=== PATIENT | male | born 1940 | race Caucasian/White ===

== ENCOUNTER 2016-08-10 05:33 | Inpatient (IN) | payer OTHER ==
[2016-07-26 12:43] LABS: HEMATOCRIT 35.3 % (42.0-52.0); HEMOGLOBIN 11.8 gm/dL (14.0-18.0); MCH 29.8 pg (26.0-34.0); MCHC 33.4 g/dL (28.0-37.0); MCV 89.2 fL (80.0-100.0); RBC 3.96 mil/uL (4.50-6.00); RDW 16.7 % (10.5-14.5)
[2016-07-26 12:51] LABS: ALBUMIN 3.8 g/dL (3.4-5.0); CALCIUM 8.8 mg/dL (8.5-10.1); CREATININE 0.9 mg/dL (0.7-1.3); POTASSIUM 4.3 mmol/L (3.5-5.1)
[2016-07-26 12:54] LABS: INR 1.1; PROTIME 11.2 Seconds (9.3-11.4)
[2016-07-26 13:08] LABS: URINE BILIRUBIN NEGATIVE (Negative); URINE BLOOD NEGATIVE (Negative); URINE COLOR YELLOW; URINE GLUCOSE-RANDOM* NEGATIVE (Negative); URINE KETONES NEGATIVE (Negative); URINE LEUKOCYTES-REFLEX NEGATIVE (Negative); URINE PROTEIN (DIPSTICK) NEGATIVE (Negative); URINE SPECIFIC GRAVITY 1.025 (1.003-1.035); URINE UROBILINOGEN 0.2 E.U./dl (0.2-1.0)
[2016-08-10] VITALS (9 sets, daily range): BP systolic 114–150; BP diastolic 49–84
[~2016-08-10] VITALS: Ht 172.7 cm; Wt 68.6 kg
--- NOTE | ~2016-08-10 | O ---
[facility] [place] [address] OPERATIVE REPORT Name: CEHN KEE Room #: 541-P DIS IN M.R.#: [id number] Admission: 08/10/16 Attend Phys: Abilio Dumont MD Discharge: 08/15/16 Date of : 36 Report #: [id number] THIS REPORT FOR: //name// CC: Mukesh Dumont PREOPERATIVE DIAGNOSIS: Right knee degenerative joint disease, severe. POSTOPERATIVE DIAGNOSIS: Right knee degenerative joint disease, severe. PROCEDURE: Right total knee arthroplasty. SURGEON: Abilio Dumont MD STRAIGHT PIN MAKING MACHINE OPERATOR: Alec Viveros, nurse practitioner. INDICATIONS FOR STRAIGHT PIN MAKING MACHINE OPERATOR: During the course of operation, extensive manipulation, retraction and limb positioning was required. This was afforded to me by my pastry assistant. ANESTHESIA: General. INDICATIONS: See hospital H and P revisions of 08/10/2016. IMPLANTS UTILIZED: DePuy PFC system, cruciate retaining femoral component size 5, size 4 tibial tray, 6 bearing 8 mm insert and a 41 mm oval dome patella. DESCRIPTION OF PROCEDURE: After adequate general anesthesia had been obtained, the patient's right lower extremity was prepped and draped in the usual meticulous sterile fashion. Limb was examined with gravity and tourniquet inflated to 300 torr. An anterior midline incision was made, subQ divided sharply. Hemostasis obtained with electrocautery. Medial parapatellar incision was made. Infrapatellar fat pad excised. Medial release performed along the joint line only due to the patient's valgus deformity. The drill was used to drill the distal femur. This hole was enlarged, irrigated, suctioned, and the intramedullary guide placed the full length of the femur. Distal femoral cutting guide pinned to appropriate height, distal femoral cut was made. We then measured the device to 5, it gave us the best reapproximation of the patient's size. We marked the distal femur, impacted the cutting guide into place and the anterior, posterior and chamfer cuts were made. The rongeur was used to remove additional osteophytes. At this time, the ACL was transected, tibia translated anteriorly, menisci were excised. Drill was used to drill central portion of the tibia. This hole was enlarged, irrigated, suctioned, and the intramedullary guide placed the full length of the tibia. Proximal tibial cutting guide placed at appropriate [facility] [address] [place] [address] OPERATIVE REPORT Name: CHEMA KEEMERY ZHU Room #: 541-P DIS IN M.R.#: [id number] Admission: 08/10/16 Attend Phys: Abilio Dumont MD Discharge: 08/15/16 Date of : 36 Report #: [id number] height. Proximal tibia cut was made. The #4 tray gave us the best coverage of the tibia. With trial components in position with the 4 spacer, we had the best flexion and extension gap. The patella was then measured, cutting guide clamped into place, patellar cut was made. The 41 template gave us the best coverage. Pedicles were drilled, trial component put in position, it tracked normally. At this time, the knee was taken through several cycles of flexion and extension. The tibial tray rotation marked, distal femur drilled. Trial components were removed. Tibial keel cuts were made. The knee was irrigated with both pulse lavage and antibiotic irrigation. We placed bone plugs in the proximal tibia and distal femur. The cement was vacuum mixed and when it reached the appropriate consistency, the knee was thoroughly dried, the tibial tray was cemented in place. Excess cement was removed. The polyethylene was impacted in place and the femur impacted in place and the knee was taken out to 30 degrees of flexion with uniform compression placed across components. Patellar button was then cemented into place and again excess cement was removed. At this time, the knee was taken out to 30 degrees of flexion, uniform compression placed across components. The knee was irrigated and irrigation was allowed to rest in the wound while the cement fully cured. When it had done so, the knee was irrigated, dried thoroughly, and inspected. Drains were placed superolaterally both deep and superficial. Retinacular layer closed with combination of interrupted [id number] #1 Vicryl as well as running #1 Tevdek. SubQ closed with 2-0 Monocryl, skin closed with jeffry. Sterile compressive dressing applied. Tourniquet was then deflated. <ELECTRONICALLY SIGNED> By: Abilio Dumont MD 08/17/16 1510 [id number] Abilio Dumont MD /nt
[~2016-08-10 05:33] MED LIST: ASPIR 8181 MG PO; COLACE100 MG PO; COUMADIN 2 MG TA2 M1 PO; COUMADIN 5 MG TA5 M1 PO; ENOXAPARIN40 MG/0.1 SUBQ; FISH OIL 1,001000 M2 PO; HYDROCORTISONE28 G1 TOP; IBUPROFEN 800800 M1 PO; LEVAQUIN 500 M500 M2 PO; MULTIVITAMINS1 EAC7 PO; PERCOCET 7.5-31 EACH PO; SENNA PO; TYLENOL325 MG PO
[2016-08-11 04:01] VITALS: BP 106/43
[2016-08-11 05:28] LABS: PLATELET COUNT 153 thou/uL (150-400); RBC 3.03 mil/uL (4.50-6.00)
[2016-08-11 05:32] LABS: HEMATOCRIT 27.5 % (42.0-52.0); HEMOGLOBIN 9.1 gm/dL (14.0-18.0); MCH 29.9 pg (26.0-34.0); MCV 90.6 fL (80.0-100.0); RDW 16.6 % (10.5-14.5)
[2016-08-11 05:39] LABS: MANUAL DIFF YES
[2016-08-11 05:45] LABS: WBC 200.6 thou/uL (4.0-11.0)
[2016-08-11 05:47] LABS: CALCIUM 7.7 mg/dL (8.5-10.1); MAGNESIUM 1.8 mg/dL (1.8-2.4); POTASSIUM 5.3 mmol/L (3.5-5.1)
[2016-08-11 07:06] VITALS: BP 110/58
[2016-08-11 08:05] LABS: ATYPICAL LYMPHS 2 %; TOTAL CELL COUNT 100
[2016-08-11 08:06] LABS: ANISOCYTOSIS 1+
[2016-08-11 08:07] LABS: SCHISTOCYTES OCCASIONAL
[2016-08-11 10:31] VITALS: BP 110/58
[2016-08-11 14:09] VITALS: BP 110/58
[2016-08-11 15:43] VITALS: BP 106/50
[2016-08-11 20:40] VITALS: BP 123/61
[2016-08-12 02:33] VITALS: BP 121/57
[2016-08-12 06:50] LABS: HEMATOCRIT 26.2 % (42.0-52.0); HEMOGLOBIN 8.8 gm/dL (14.0-18.0); MCH 30.6 pg (26.0-34.0); MCHC 33.5 g/dL (28.0-37.0); MCV 91.2 fL (80.0-100.0); RBC 2.87 mil/uL (4.50-6.00); RDW 16.6 % (10.5-14.5)
[2016-08-12 06:53] LABS: WBC 202.3 thou/uL (4.0-11.0)
[2016-08-12 07:00] LABS: CALCIUM 7.8 mg/dL (8.5-10.1); CREATININE 0.8 mg/dL (0.7-1.3)
[2016-08-12 15:26] VITALS: BP 122/7
[2016-08-12 19:12] VITALS: BP 143/62
[2016-08-13 04:30] VITALS: BP 131/49
[2016-08-13 05:28] LABS: HEMOGLOBIN 8.3 gm/dL (14.0-18.0); MCV 89.5 fL (80.0-100.0)
[2016-08-13 05:32] LABS: HEMATOCRIT 24.2 % (42.0-52.0); MCH 30.6 pg (26.0-34.0); MCHC 34.2 g/dL (28.0-37.0); RBC 2.7 mil/uL (4.50-6.00); RDW 16.4 % (10.5-14.5)
[2016-08-13 05:44] LABS: WBC 180.9 thou/uL (4.0-11.0)
[2016-08-13 06:07] LABS: CALCIUM 7.6 mg/dL (8.5-10.1); CREATININE 0.8 mg/dL (0.7-1.3)
[2016-08-13] MEDS ORDERED: XARELTO10 MG PO (10:30)
[2016-08-13 10:59] LABS: HEMOGLOBIN 8.1 gm/dL (14.0-18.0)
[2016-08-13 11:04] LABS: HEMATOCRIT 24.2 % (42.0-52.0)
[2016-08-13] MEDS ORDERED: PERCOCET 10-321 EACH PO (11:19)
[2016-08-13 13:31] VITALS: BP 117/49
[2016-08-13 16:00] VITALS: BP 133/55
[2016-08-14 04:32] VITALS: BP 126/54
[2016-08-14 06:26] LABS: HEMATOCRIT 21.9 % (42.0-52.0); HEMOGLOBIN 7.4 gm/dL (14.0-18.0)
[2016-08-14 07:53] VITALS: BP 127/48
[2016-08-14 14:48] VITALS: BP 128/55
[2016-08-14 20:30] VITALS: BP 148/60
[2016-08-15 03:20] VITALS: BP 126/48
[2016-08-15 06:04] LABS: HEMATOCRIT 22.6 % (42.0-52.0); HEMOGLOBIN 7.7 gm/dL (14.0-18.0)
[2016-08-15 07:45] VITALS: BP 138/49
[2016-08-15 10:08] VITALS: BP 110/58
== END 2016-08-15 10:34 | disposition home or self-care (01) | DRG 470 ==
LOC: TBA 05:33 → 5S 05:33 → PRE 07:46 → 5S 10:57 → PRE 13:19 → 5S 08-15 10:34
PROVIDERS: Hospitalist; Nurse Practitioner; Nurse Practitioner Family; Orthopaedic Surgery
PROC: 0SRC0J9 Replacement of Right Knee Joint with Synthetic Substitute, Cemented, Open Approach (ICD-10-PCS; principal; 2016-08-10)
DX: M17.11 Unilateral primary osteoarthritis, right knee (principal); C91.10 Chronic lymphocytic leukemia of B-cell type not having achieved remission; E87.5 Hyperkalemia; D50.0 Iron deficiency anemia secondary to blood loss (chronic); Z96.1 Presence of intraocular lens; Z96.643 Presence of artificial hip joint, bilateral; Z90.81 Acquired absence of spleen; Z90.49 Acquired absence of other specified parts of digestive tract; Z98.41 Cataract extraction status, right eye; Z98.42 Cataract extraction status, left eye; Z88.6 Allergy status to analgesic agent; Z87.442 Personal history of urinary calculi
CPT/HCPCS: 10785; 50010; 50101; 50415; 50612; 50954; 51130; 51225; 51320; 51412; 51771; 52001; 52282; 53000; 53078; 53364; 56525; 56527; 62110; 62900; 70005